=== PATIENT | male | born 1955 | race African-American/Black ===

== ENCOUNTER 2022-08-05 20:04 | Inpatient (IN) | payer MEDICARE, OTHER ==
[~2022-08-05] VITALS: Ht 182.9 cm; Wt 88.4 kg
[2022-08-05] MEDS: LACTATED RINGER'S 2,600 ML IV ONE (00:45)
[2022-08-05 21:26] LABS: Basophils # (auto) 0 10 ^3/uL (0-0.2); Basophils % (auto) 0.1 % (0.0-2.0); Eosinophils # (auto) 0 10 ^3/uL (0-0.8); Nucleated Red Blood Cells % 0.4 %
[2022-08-05 21:28] LABS: Hemoglobin 19.3 g/dL (13.5-17.5); Lymphocytes # (auto) 1.1 10 ^3/uL (0.4-5.4); Lymphocytes % (auto) 5.2 % (10.0-50.0); Mean Corpuscular Hgb Conc. 31.6 g/dL (32.0-36.0); Mean Corpuscular Volume 72.9 fL (80.0-100.0); Monocytes # (auto) 1.2 10 ^3/uL (0-1.3); Monocytes % (auto) 5.7 % (0.0-12.0); Neutrophils # (auto) 18.3 10 ^3/uL (1.6-8.6); Red Blood Cells 8.38 10^6/uL (4.5-5.90); Red Cell Distribution Width 17.8 % (11.8-14.3); White Blood Cell 20.6 10^3/uL (4.4-10.8)
[2022-08-05 23:37] LABS: Albumin 3.9 g/dL (3.4-5.0); BUN/Creatinine Ratio 10.8; Calcium 9.9 mg/dL (8.5-10.1); Magnesium 2.6 mg/dL (1.6-2.6); Potassium 4.5 mmol/L (3.5-5.1)
[2022-08-05 23:40] LABS: Total Protein 9.4 g/dL (6.4-8.2)
[2022-08-05] MEDS ORDERED: metroNIDAZOLE 500MG/100ML 100 ML IV ONE (23:45)
[2022-08-05] MEDS ORDERED: cefTRIAXone 1GM/50ML D5W 50 ML IV ONE (23:45)
[2022-08-06] MEDS: LACTATED RINGER'S 2,600 ML IV ONE (00:45)
[2022-08-06] MEDS ORDERED: PANTOPRAZOLE 40 MG/10 ML VIAL INJ IV ONE (01:15)
[2022-08-06] MEDS ORDERED: PANTOPRAZOLE 40mg/50ML NS AE 50 ML IV ONE (01:15)
[2022-08-06] MEDS ORDERED: HYDROcodone-ACET 5/325MG TAB PO PRN (04:00)
[2022-08-06] MEDS ORDERED: ACETAMINOPHEN 325 MG TAB PO PRN (04:00)
[2022-08-06] MEDS ORDERED: ONDANSETRON HCL 4 MG/2 ML VIAL IV PRN (04:00)
[2022-08-06] MEDS ORDERED: DOCUSATE SOD 100 MG CAP PO PRN (04:00)
[2022-08-06] MEDS ORDERED: LORazepam 2MG/ML-1ML VIAL IV ONE (04:30)
[2022-08-06] MEDS ORDERED: LORazepam 2MG/ML-1ML VIAL IV PRN (04:30)
[2022-08-06] MEDS ORDERED: NITROGLYCERIN 0.4 MG SL TAB SL PRN (04:45)
[2022-08-06] MEDS ORDERED: MORPHINE SULFATE INJ 2 MG/ml SYRG IV PRN (04:45)
[2022-08-06] MEDS ORDERED: SODIUM CHLORIDE 0.9% 1,000 ML IV SCH (06:00)
[2022-08-06] MEDS: metroNIDAZOLE 500MG/100ML 100 ML IV SCH ×3 (06:00→21:43)
[2022-08-06] MEDS: SODIUM CHLORIDE 0.9% 1,000 ML IV SCH ×2 (07:07→21:42)
[2022-08-06 07:19] LABS: Eosinophils # (auto) 0 10 ^3/uL (0-0.8); Lymphocytes % (auto) 6.7 % (10.0-50.0)
[2022-08-06 07:22] LABS: Basophils # (auto) 0 10 ^3/uL (0-0.2); Basophils % (auto) 0.3 % (0.0-2.0); Hematocrit 51.7 % (41.0-53.0); Mean Corpuscular Hemoglobin 23.2 pg (28.0-32.0); Mean Corpuscular Hgb Conc. 32.8 g/dL (32.0-36.0); Mean Corpuscular Volume 70.6 fL (80.0-100.0); Monocytes # (auto) 1.7 10 ^3/uL (0-1.3); Monocytes % (auto) 11.3 % (0.0-12.0); Neutrophils # (auto) 12.3 10 ^3/uL (1.6-8.6); Neutrophils % (auto) 81.7 % (37.0-80.0); Nucleated Red Blood Cells % 0.9 %; Red Blood Cells 7.32 10^6/uL (4.5-5.90); Red Cell Distribution Width 16.5 % (11.8-14.3); White Blood Cell 15.1 10^3/uL (4.4-10.8)
[2022-08-06 08:14] LABS: Potassium 4.9 mmol/L (3.5-5.1)
[2022-08-06 08:26] LABS: Albumin 3.4 g/dL (3.4-5.0); BUN/Creatinine Ratio 14.1; Bilirubin, Total 1.1 mg/dL (0.2-1.0); Calcium 9.2 mg/dL (8.5-10.1); Total Protein 7.1 g/dL (6.4-8.2)
[2022-08-06] MEDS: cefTRIAXone 1GM/50ML D5W 50 ML IV SCH (09:20)
[2022-08-06] MEDS: HEPARIN SODIUM (PORCINE) 5000 UNITS/ML 1ML VIAL SC SCH ×2 (10:08→21:48)
[2022-08-06] MEDS: FAMOTIDINE (10MG/ML) 2ML VL IV SCH (10:08)
[2022-08-06 10:45] LABS: Urine Bacteria NONE SEEN /hpf (None Seen); Urine Blood 1+ /uL (Negative); Urine Hyaline Cast MANY /lpf (0 - 2); Urine Mucus FEW (None Seen); Urine Specific Gravity 1.026 (1.001-1.035); Urine WBC 11 /hpf (0 - 3)
[2022-08-06] MEDS: LORazepam 2MG/ML-1ML VIAL IV PRN ×2 (10:54→20:19)
[2022-08-06 11:07] LABS: Magnesium 2.2 mg/dL (1.6-2.6); Uric Acid 10.4 mg/dL (3.5-7.2)
[2022-08-06 15:24] LABS: Alcohol, Urine < 3.0 mg/dL (0-10); Amphetamine Screen, Urine NEGATIVE (NEGATIVE); Barbiturate Scree,Urine NEGATIVE (NEGATIVE); Benzodiazephine Screen, Urine NEGATIVE (NEGATIVE); Cannabinoid Screen, Urine NEGATIVE (NEGATIVE); Cocaine Screen, Urine NEGATIVE (NEGATIVE); Opiate Scree,Urine NEGATIVE (NEGATIVE); Phencyclidine Screen, Urine NEGATIVE (NEGATIVE)
[2022-08-06 16:13] LABS: Protein, Urine 125.5 mg/dL (0.0-11.9)
[2022-08-06 16:56] VITALS: BP 120/66
[2022-08-06 17:00] VITALS: BP 120/66
[2022-08-06 22:00] VITALS: BP 97/60
[2022-08-07 05:00] VITALS: BP 110/64
[2022-08-07] MEDS: metroNIDAZOLE 500MG/100ML 100 ML IV SCH ×3 (05:21→21:59)
[2022-08-07 05:37] LABS: Albumin 2.8 g/dL (3.4-5.0); Anion Gap 5 (5-15); Aspartate Aminotransferase 17 U/L (15-37); BUN/Creatinine Ratio 29.9; Blood Urea Nitrogen 70 mg/dL (7-18); Calcium 8.3 mg/dL (8.5-10.1); Carbon Dioxide 26 mmol/L (21-32); Chloride 114 mmol/L (98-107); GFR African American 36 mL/min; GFR Non-African American 30 mL/min; Glucose 90 mg/dL (74-106); Potassium 4.4 mmol/L (3.5-5.1); Sodium 145 mmol/L (136-145)
[2022-08-07 05:46] LABS: Basophils # (auto) 0 10 ^3/uL (0-0.2); Basophils % (auto) 0.4 % (0.0-2.0); Eosinophils # (auto) 0 10 ^3/uL (0-0.8); Eosinophils % (auto) 0.5 % (0.0-7.0); Hematocrit 48.2 % (41.0-53.0); Hemoglobin 15.4 g/dL (13.5-17.5); Lymphocytes # (auto) 1.6 10 ^3/uL (0.4-5.4); Mean Corpuscular Hemoglobin 23.1 pg (28.0-32.0); Monocytes # (auto) 1.2 10 ^3/uL (0-1.3); Monocytes % (auto) 14.6 % (0.0-12.0); Neutrophils # (auto) 5.3 10 ^3/uL (1.6-8.6); Neutrophils % (auto) 64.5 % (37.0-80.0); Nucleated Red Blood Cells % 0.1 %; Red Blood Cells 6.69 10^6/uL (4.5-5.90); Red Cell Distribution Width 16.6 % (11.8-14.3); White Blood Cell 8.2 10^3/uL (4.4-10.8)
[2022-08-07 05:47] LABS: Alanine Aminotransferase 18 U/L (16-61); Alkaline Phosphatase 82 U/L (45-117); Bilirubin, Total 0.8 mg/dL (0.2-1.0); Total Protein 6.9 g/dL (6.4-8.2)
[2022-08-07] MEDS ORDERED: PIPERACILLIN-TAZOB 3.375GM 100 ML IV SCH (07:00)
[2022-08-07 08:38] VITALS: BP 156/77
[2022-08-07] MEDS ORDERED: ERGOCALCIFEROL 50,000 UNIT(1.25MG) CAP PO SCH (11:45)
[2022-08-07 13:00] VITALS: BP 102/58
[2022-08-07] MEDS: HEPARIN SODIUM (PORCINE) 5000 UNITS/ML 1ML VIAL SC SCH ×2 (15:36→22:03)
[2022-08-07] MEDS: cefTRIAXone 1GM/50ML D5W 50 ML IV SCH (15:36)
[2022-08-07] MEDS: SODIUM CHLORIDE 0.9% 1,000 ML IV SCH (15:37)
[2022-08-07 17:00] VITALS: BP 110/65
[2022-08-07 22:00] VITALS: BP 110/69
[2022-08-07] MEDS: LORazepam 2MG/ML-1ML VIAL IV PRN (22:14)
[2022-08-08 05:00] VITALS: BP 98/86
[2022-08-08] MEDS: SODIUM CHLORIDE 0.9% 1,000 ML IV SCH ×2 (05:40→22:39)
[2022-08-08] MEDS: metroNIDAZOLE 500MG/100ML 100 ML IV SCH ×3 (05:40→22:38)
[2022-08-08 06:37] LABS: Basophils # (auto) 0 10 ^3/uL (0-0.2); Basophils % (auto) 0.5 % (0.0-2.0); Eosinophils # (auto) 0.1 10 ^3/uL (0-0.8); Eosinophils % (auto) 0.8 % (0.0-7.0); Hematocrit 44.4 % (41.0-53.0); Lymphocytes # (auto) 1.4 10 ^3/uL (0.4-5.4); Lymphocytes % (auto) 17.5 % (10.0-50.0); Mean Corpuscular Hemoglobin 23.3 pg (28.0-32.0); Mean Corpuscular Hgb Conc. 31.5 g/dL (32.0-36.0); Mean Corpuscular Volume 73.8 fL (80.0-100.0); Monocytes # (auto) 0.9 10 ^3/uL (0-1.3); Monocytes % (auto) 11.1 % (0.0-12.0); Neutrophils # (auto) 5.5 10 ^3/uL (1.6-8.6); Neutrophils % (auto) 70.1 % (37.0-80.0); Nucleated Red Blood Cells % 0.1 %; Red Blood Cells 6.02 10^6/uL (4.5-5.90); Red Cell Distribution Width 16.9 % (11.8-14.3); White Blood Cell 7.8 10^3/uL (4.4-10.8)
[2022-08-08 06:49] LABS: Potassium 4.6 mmol/L (3.5-5.1)
[2022-08-08 06:54] LABS: BUN/Creatinine Ratio 27.4; Calcium 8.4 mg/dL (8.5-10.1)
[2022-08-08 08:40] VITALS: BP 121/59
[2022-08-08] MEDS: cefTRIAXone 1GM/50ML D5W 50 ML IV SCH (09:04)
[2022-08-08] MEDS: FAMOTIDINE (10MG/ML) 2ML VL IV SCH (09:04)
[2022-08-08] MEDS: HEPARIN SODIUM (PORCINE) 5000 UNITS/ML 1ML VIAL SC SCH ×2 (09:05→22:38)
[2022-08-08] MEDS: LORazepam 2MG/ML-1ML VIAL IV PRN ×3 (12:24→22:39)
[2022-08-08 13:00] VITALS: BP 117/63
[2022-08-08 17:00] VITALS: BP 124/73
[2022-08-08 22:00] VITALS: BP 104/66
[2022-08-09 05:00] VITALS: BP 99/58
[2022-08-09] MEDS: metroNIDAZOLE 500MG/100ML 100 ML IV SCH ×3 (06:13→22:00)
[2022-08-09 09:00] VITALS: BP 99/68
[2022-08-09] MEDS: cefTRIAXone 1GM/50ML D5W 50 ML IV SCH (09:30)
[2022-08-09] MEDS: HEPARIN SODIUM (PORCINE) 5000 UNITS/ML 1ML VIAL SC SCH ×2 (09:35→22:00)
[2022-08-09 13:00] VITALS: BP_SYST 111; BP_SYST 139; BP_DIAS 54; BP_DIAS 67
[2022-08-09] MEDS ORDERED: HALOPERIDOL LACTATE 5 MG/ML INJ VIAL IM PRN (13:15)
[2022-08-09] MEDS ORDERED: CHOLECALCIFEROL (VITD3) 2,000 UNIT CAP/TAB PO ONE (13:15)
[2022-08-09 17:00] VITALS: BP 133/69
[2022-08-09 21:53] VITALS: BP 112/54
[2022-08-09] MEDS: FAMOTIDINE (10MG/ML) 2ML VL IV SCH (22:00)
[2022-08-09] MEDS: OLANZapine 5 MG TAB PO SCH (22:00)
[2022-08-10 05:00] VITALS: BP 113/52
[2022-08-10] MEDS: metroNIDAZOLE 500MG/100ML 100 ML IV SCH ×2 (05:34→13:34)
[2022-08-10 09:00] VITALS: BP 118/65
[2022-08-10] MEDS: cefTRIAXone 1GM/50ML D5W 50 ML IV SCH (09:00)
[2022-08-10] MEDS: FAMOTIDINE (10MG/ML) 2ML VL IV SCH (09:54)
[2022-08-10] MEDS: HEPARIN SODIUM (PORCINE) 5000 UNITS/ML 1ML VIAL SC SCH (09:55)
[2022-08-10] MEDS: OLANZapine 5 MG TAB PO SCH (09:55)
[2022-08-10] MEDS ORDERED: CHOLECALCIFEROL (VITD3) 2,000 UNIT CAP/TAB PO SCH (10:00)
[2022-08-10 13:00] VITALS: BP 131/69
[2022-08-10] MEDS ORDERED: OLAN1TAB7 PO (15:47)
[2022-08-10] MEDS ORDERED: LEVO500T31 PO (15:47)
[2022-08-10] MEDS ORDERED: METR500T PO (15:47)
[2022-08-10] MEDS ORDERED: ERGO1CAP23 PO (15:47)
[2022-08-10 16:54] VITALS: BP 145/66
[2022-08-10 18:06] VITALS: BP 145/66
== END 2022-08-10 20:01 | disposition home health service (06) | DRG 871 ==
LOC: EDBD 20:04 → ER 20:04 → TELE 08-06 04:42 → TELE-WESTW 08-06 15:55
PROVIDERS: ADMIT Nurse Practitioner Family; ATTEND Internal Medicine
DX: A41.9 Sepsis, unspecified organism (principal); G93.41 Metabolic encephalopathy; I21.A1 Myocardial infarction type 2; N17.9 Acute kidney failure, unspecified; K92.2 Gastrointestinal hemorrhage, unspecified; D64.9 Anemia, unspecified; E86.0 Dehydration; N18.9 Chronic kidney disease, unspecified; F25.9 Schizoaffective disorder, unspecified; R68.0 Hypothermia, not associated with low environmental temperature; Z20.822 Contact with and (suspected) exposure to COVID-19; Z91.199 Patient's noncompliance with other medical treatment and regimen due to unspecified reason; Z80.3 Family history of malignant neoplasm of breast
CPT/HCPCS: 36415; 51702; 70450; 80048; 80053; 80307; 80320; 81001; 82140; 82150; 82306; 82570; 83690; 83735; 83935; 83970; 84156; 84300; 84439; 84443; 84484; 84550; 85025; 87040; 87077; 87086; 87186; 87426; 93005; 93306; 96365; 96366; 96367; 96375; 97163; 99291; C9113; G0378; J0696; J3490

== ENCOUNTER 2023-09-06 00:41 | Inpatient (IN) | payer MEDICARE ==
[~2023-09-06] VITALS: Ht 180.3 cm; Wt 89.2 kg
[~2023-09-06 00:41] MED LIST: ERGO1CAP23 PO; LEVO500T31 PO; METR500T PO; OLAN1TAB7 PO
[2023-09-06] MEDS: MIDAZOLAM HCL 2MG/2ML 2ml VIAL (1mg/ml) IV ONE ×2 (01:15→01:27)
[2023-09-06] MEDS: SODIUM CHLORIDE 0.9% 1,000 ML IV ONE ×2 (01:27)
[2023-09-06 01:45] LABS: Hemoglobin 16.9 g/dL (13.5-17.5); Mean Corpuscular Hemoglobin 23.3 pg (28.0-32.0); Mean Corpuscular Hgb Conc. 31.9 g/dL (32.0-36.0); Red Blood Cells 7.25 10^6/uL (4.5-5.90); Red Cell Distribution Width 17.5 % (11.8-14.3); White Blood Cell 28.2 10^3/uL (4.4-10.8)
[2023-09-06 01:46] LABS: Alanine Aminotransferase < 9 U/L (7-40); Albumin 4.9 g/dL (3.2-4.8); Alkaline Phosphatase 110 U/L (46-116); Anion Gap 14 (5-15); Aspartate Aminotransferase 19 U/L (13-40); BUN/Creatinine Ratio 9.5 (10.0-20.0); Bilirubin, Total 1.3 mg/dL (0.2-1.0); Blood Urea Nitrogen 28 mg/dL (9-23); Calcium 10.7 mg/dL (8.7-10.4); Carbon Dioxide 21 mmol/L (20-30); Chloride 106 mmol/L (98-107); Glucose 183 mg/dL (74-106); Potassium 4.3 mmol/L (3.5-5.1); Sodium 141 mmol/L (136-145); Total Protein 8.6 g/dL (5.7-8.2)
[2023-09-06 01:48] LABS: INR 1.17 (0.9-1.15); Prothrombin Time 12.2 sec (9.3-11.8)
[2023-09-06 01:49] LABS: Basophils % (manual) 0 (0.0-2.0); Blast Cells 0; Eosinophils % (manual) 0 (0-7); Metamyelocytes % 0; Myelocytes % 0; Promyelocytes % 0; Reactive Lymphocytes 0
[2023-09-06 02:11] VITALS: PULSE 134; RESP 27; O2SAT 96
[2023-09-06 02:34] LABS: Anisocytosis Slight; Band Neutrophils % (manual) 1; Hypochromia Moderate; Lymphocytes % (manual) 3 (10.0-50.0); Monocytes % (manual) 4 (0-12); Platelet Estimate Adequate; Target Cell FEW
[2023-09-06] MEDS ORDERED: MORPHINE SULFATE INJ 2 MG/ml SYRG IV PRN (05:45)
[2023-09-06] MEDS ORDERED: ONDANSETRON HCL 4 MG/2 ML VIAL IV PRN (05:45)
[2023-09-06] MEDS: SODIUM CHLORIDE 0.9% 1,000 ML IV SCH (06:25)
[2023-09-06 07:30] VITALS: PULSE 91; RESP 14; O2SAT 99
[2023-09-06] MEDS ORDERED: LORazepam 2MG/ML-1ML VIAL IV PRN (08:00)
[2023-09-06] MEDS: GASTROGRAFIN 120 ML SOL ONE (10:16)
[2023-09-06] MEDS: MIDAZOLAM HCL 2MG/2ML 2ml VIAL (1mg/ml) ONE (10:16)
[2023-09-06 12:24] LABS: Potassium 4.2 mmol/L (3.5-5.1)
[2023-09-06 12:25] LABS: Anion Gap 6 (5-15); Carbon Dioxide 27 mmol/L (20-30)
[2023-09-06 12:30] LABS: BUN/Creatinine Ratio 22.6 (10.0-20.0); Blood Urea Nitrogen 35 mg/dL (9-23); Chloride 118 mmol/L (98-107); Glucose 131 mg/dL (74-106); Sodium 151 mmol/L (136-145)
[2023-09-06] MEDS ORDERED: OLAN20TA PO (12:30)
[2023-09-06] MEDS: SOD CHL 0.45% 1,000 ML IV SCH (15:00)
[2023-09-06] MEDS: metroNIDAZOLE 500MG/100ML 100 ML IV SCH (15:22)
[2023-09-06] MEDS: cefTRIAXone 1GM/50ML D5W 50 ML IV SCH (17:42)
[2023-09-06] MEDS: LORazepam 2MG/ML-1ML VIAL IV SCH (19:42)
[2023-09-06 22:00] VITALS: BP 118/57; PULSE 104; RESP 18; TEMP 87.9; O2SAT 95
[2023-09-07] VITALS (8 sets, daily range): BP systolic 118–151; BP diastolic 65–84; PULSE 71–96; RESP 16–20; TEMP 97.5–98.1; O2SAT 93–98
[2023-09-07] MEDS ORDERED: LORazepam 2MG/ML-1ML VIAL IV SCH
[2023-09-07 07:43] LABS: Basophils # (auto) 0.1 10 ^3/uL (0-0.2); Eosinophils # (auto) 0.1 10 ^3/uL (0-0.8); Lymphocytes # (auto) 1.8 10 ^3/uL (0.4-5.4)
[2023-09-07 07:45] LABS: Basophils % (auto) 0.5 % (0.0-2.0); Eosinophils % (auto) 0.4 % (0.0-7.0); Hematocrit 43.9 % (41.0-53.0); Hemoglobin 13.8 g/dL (13.5-17.5); Lymphocytes % (auto) 11.9 % (10.0-50.0); Mean Corpuscular Hemoglobin 23.2 pg (28.0-32.0); Mean Corpuscular Hgb Conc. 31.5 g/dL (32.0-36.0); Mean Corpuscular Volume 73.8 fL (80.0-100.0); Monocytes # (auto) 0.9 10 ^3/uL (0-1.3); Monocytes % (auto) 6.3 % (0.0-12.0); Neutrophils # (auto) 12.1 10 ^3/uL (1.6-8.6); Neutrophils % (auto) 80.9 % (37.0-80.0); Nucleated Red Blood Cells % 0.1 %; Red Blood Cells 5.95 10^6/uL (4.5-5.90); Red Cell Distribution Width 17.8 % (11.8-14.3)
[2023-09-07 07:56] LABS: Alanine Aminotransferase 15 U/L (7-40); Alkaline Phosphatase 78 U/L (46-116); Anion Gap 6 (5-15); Aspartate Aminotransferase 30 U/L (13-40); BUN/Creatinine Ratio 23.8 (10.0-20.0); Carbon Dioxide 26 mmol/L (20-30); Chloride 119 mmol/L (98-107); Glucose 108 mg/dL (74-106); Sodium 151 mmol/L (136-145)
[2023-09-07 07:57] LABS: Bilirubin, Total 0.9 mg/dL (0.2-1.0); Total Protein 6.5 g/dL (5.7-8.2)
[2023-09-07 07:58] LABS: Blood Urea Nitrogen 24 mg/dL (9-23)
[2023-09-07] MEDS: OLANZapine 5 MG TAB PO SCH (10:14)
[2023-09-08] VITALS (7 sets, daily range): BP systolic 104–127; BP diastolic 53–73; PULSE 60–93; RESP 17–22; TEMP 36.6; O2SAT 95–98
[2023-09-08 05:59] LABS: Basophils # (auto) 0 10 ^3/uL (0-0.2); Basophils % (auto) 0.5 % (0.0-2.0); Eosinophils # (auto) 0.3 10 ^3/uL (0-0.8); Eosinophils % (auto) 3.3 % (0.0-7.0); Hematocrit 39.3 % (41.0-53.0); Hemoglobin 12.5 g/dL (13.5-17.5); Lymphocytes # (auto) 1.7 10 ^3/uL (0.4-5.4); Lymphocytes % (auto) 18.8 % (10.0-50.0); Mean Corpuscular Hemoglobin 23.4 pg (28.0-32.0); Mean Corpuscular Hgb Conc. 31.8 g/dL (32.0-36.0); Mean Corpuscular Volume 73.5 fL (80.0-100.0); Monocytes # (auto) 0.6 10 ^3/uL (0-1.3); Monocytes % (auto) 6.8 % (0.0-12.0); Neutrophils # (auto) 6.3 10 ^3/uL (1.6-8.6); Neutrophils % (auto) 70.6 % (37.0-80.0); Nucleated Red Blood Cells % 0.1 %; Red Blood Cells 5.35 10^6/uL (4.5-5.90); Red Cell Distribution Width 17.4 % (11.8-14.3)
[2023-09-08 06:04] LABS: Chloride 114 mmol/L (98-107); Potassium 3.6 mmol/L (3.5-5.1); Sodium 145 mmol/L (136-145)
[2023-09-08 06:05] LABS: Anion Gap 9 (5-15); Carbon Dioxide 22 mmol/L (20-30)
[2023-09-08 06:06] LABS: Calcium 8.6 mg/dL (8.5-10.1)
[2023-09-08 06:10] LABS: BUN/Creatinine Ratio 19.8 (10.0-20.0); Blood Urea Nitrogen 17 mg/dL (9-23); Glucose 90 mg/dL (74-106)
[2023-09-08 07:13] LABS: Urine Bacteria None Seen /hpf (None Seen)
[2023-09-08 07:29] LABS: Urine Blood Negative /uL (Negative); Urine Clarity Clear (Clear); Urine Color Light-Orange (Yellow); Urine Mucus FEW (None Seen); Urine Protein, UAD TRACE (Negative); Urine Specific Gravity 1.028 (1.001-1.035); Urine Urobilinogen Normal (Negative); Urine WBC 1 /hpf (0 - 3); Urine pH 6.5 (5.0-9.0)
== END 2023-09-08 19:45 | disposition home or self-care (01) | DRG 388 ==
LOC: ER 00:41 → CENTRAL 05:36 → OVERFLOW 05:36 → EAST 15:43 → CENTRAL 09-07 01:30
PROVIDERS: ADMIT Nurse Practitioner; ATTEND Nurse Practitioner Acute Care
PROC: 0D9670Z Drainage of Stomach with Drainage Device, Via Natural or Artificial Opening (ICD-10-PCS; principal; 2023-09-06)
DX: K56.699 Other intestinal obstruction unspecified as to partial versus complete obstruction (principal); N17.0 Acute kidney failure with tubular necrosis; R65.11 Systemic inflammatory response syndrome (SIRS) of non-infectious origin with acute organ dysfunction; E87.0 Hyperosmolality and hypernatremia; K92.0 Hematemesis; E86.0 Dehydration; F20.9 Schizophrenia, unspecified; Z80.3 Family history of malignant neoplasm of breast; Z79.899 Other long term (current) drug therapy
CPT/HCPCS: 36415; 71045; 74176; 74250; 80048; 80053; 81001; 82962; 84484; 85007; 85025; 85027; 85610; 86850; 86900; 86901; 93005; 99291; G0378; J2250; J3490

== ENCOUNTER 2024-10-15 00:02 | Inpatient (IN) | payer MEDICARE ==
[~2024-10-15] VITALS: Ht 180.3 cm; Wt 86.5 kg
[~2024-10-15 00:02] MED LIST changes: -ERGO1CAP23 PO; -LEVO500T31 PO; -METR500T PO; -OLAN1TAB7 PO; +OLAN20TA PO
[2024-10-15 00:43] LABS: Urine Bacteria None Seen /hpf (None Seen)
[2024-10-15 01:01] LABS: Eosinophils # (auto) 0 10 ^3/uL (0-0.8); Lymphocytes # (auto) 0.7 10 ^3/uL (0.4-5.4); Monocytes # (auto) 0.5 10 ^3/uL (0-1.3); Neutrophils % (auto) 94.4 % (37.0-80.0)
[2024-10-15 01:03] LABS: Urine Blood TRACE /uL (Negative); Urine Clarity Clear (Clear); Urine Color Yellow (Yellow); Urine Hyaline Cast FEW /lpf (0 - 2); Urine Mucus MODERATE (None Seen); Urine Protein, UAD 1+ (Negative); Urine Specific Gravity 1.033 (1.001-1.035); Urine Squamous Epithelial Cell FEW /hpf (<5); Urine Urobilinogen 4 mg/dL (Negative); Urine WBC 3 /HPF (0-3)
[2024-10-15 01:03] LABS: Basophils # (auto) 0 10 ^3/uL (0-0.2); Basophils % (auto) 0.1 % (0.0-2.0); Hematocrit 53.2 % (41.0-53.0); Hemoglobin 17.5 g/dL (13.5-17.5); Lymphocytes % (auto) 3.3 % (10.0-50.0); Mean Corpuscular Hemoglobin 23.6 pg (28.0-32.0); Mean Corpuscular Hgb Conc. 32.8 g/dL (32.0-36.0); Mean Corpuscular Volume 71.9 fL (80.0-100.0); Monocytes % (auto) 2.2 % (0.0-12.0); Neutrophils # (auto) 20.1 10 ^3/uL (1.6-8.6); Platelet Count (auto) 412 10^3/uL (140-450); Red Blood Cells 7.39 10^6/uL (4.5-5.90); Red Cell Distribution Width 17.8 % (11.8-14.3); White Blood Cell 21.3 10^3/uL (4.4-10.8)
--- NOTE | 2024-10-15 01:13 | DVH ---
Exam: CT CT AB PEL WO CON-NO ORAL OR IV History: abd pain Comparison Study: CT CT AB PEL WO CON-NO ORAL OR IV on DOS: 09/06/23 Technique: Multidetector spiral CT of the abdomen was performed from lung bases to pubic symphysis. I maging was performed without IV contrast. Axial, coronal and sagittal multiplanar reformats were obta ined from the axial data set by the technologist. Radiation Dose : 1. Abdomen/Pelvis: CTDIvol 16.92 mGy, DLP 967.3 mGy*cm. Findings: Evaluation of solid organs is limited due to lack of intravenous contrast use. Lung Bases: No acute or significant lung base finding. Normal heart size. No pleural or pericardial effusion. Liver: The liver is normal in size. No focal lesions. Gallbladder and Biliary Tree: Mildly distended gallbladder with subcentimeter gallstone Spleen: Unremarkable Pancreas: The pancreas is grossly normal in appearance. Adrenal Glands: Unremarkable Kidneys: Multiple nonobstructing bilateral renal stones measuring up to 5 mm. Surgical clips located posterior to the right kidney. Bladder: Decompressed Bowel: Small hiatal hernia. Fluid-filled distended loops of small bowel measuring up to 5.7 cm transi tion point is identified.. Normal appendix is visualized in the right lower quadrant without findings of appendicitis. Ascites: Absent Lymphadenopathy: No mesenteric, retroperitoneal or periportal lymphadenopathy. Abdominal Wall and Mesentery: Unremarkable. Vasculature: The visualized abdominal aorta is normal in size and caliber. Evaluation of abdominal a nd pelvic vessels is limited due to lack of intravenous contrast. Pelvic Organs: Unremarkable Musculoskeletal: No aggressive focal bony lesions, acute fractures or dislocation. Chronic deformity involving the pubic symphysis. Postsurgical changes of the left SI joint. IMPRESSION: Multiple fluid-filled distended loops of small bowel measuring up to 5.7 cm without a definitive ritchie sition point concerning for possible small bowel obstruction. Similar findings were observed on mult iple prior cTs dating back to August 06, 2022.Ancillary findings as described above. Cholelithiasis. Nephrolithiasis. END IMPRESSION:
--- NOTE | 2024-10-15 01:15 | ED.PDOC ---
History of Present Illness HPI Comments 69 y/o M, with a history of SBO's, presents with c/o nonradiating, 10/10 epigastric abdominal pain, with associated nausea and vomiting. Patient reports on unprovoked onset of symptoms, that have been ongoing since yesterday afternoon. He endorses on pain feeling similar to when he last had a SBO 6x months ago and needed an NG tube and hydration prior to resolving itself. then. States on not seeing a GI specialist since then, due to outpatient scheduling issues for followup. He denies any bloody or bilious vomitus, constipation, diarrhea, urinary symptoms, fever, chills, or further associated symptoms. Chief Complaint: GI Bleed Time Seen by MD: 00:20 Reviewed Notes: Nurses Notes, Medications, Allergies Allergies: Coded Allergies: NO KNOWN ALLERGIES (Unverified , 08/06/22) Home Meds Reported Medications Olanzapine (Zyprexa) 20 Mg Tab, 20 MG PO DAILY, TAB 09/06/23 Information Source: Patient Mode of Arrival: Ambulatory Severity: Moderate Timing: Hours Duration: Since onset Prehospital treatment: None Past Medical History PAST MEDICAL HISTORY: Schizophrenia Past Medical History (Other): SBO Surgical History: Denies all surgeries Family History Family History: Reviewed,noncontributory to illness Social History Smoker: Non-Smoker Alcohol: Denies ETOH Use Drugs: Denies Drug Use Lives In: Home All Other Systems: Reviewed and Negative (Comprehensive systems review obtained and negative except for what is stated in the HPI.) Physical Exam General Appearance: No Apparent Distress, Normal HEENT: Normal ENT Inspection, Pharynx Normal, TMs Normal Neck: Full Range of Motion, Non-Tender, Normal, Normal Inspection Respiratory: Chest Non-Tender, Lungs Clear, No Accessory Muscle Use, No Respiratory Distress, Normal Breath Sounds Cardiovascular: No Edema, No JVD, No Murmur, No Gallop, Normal Peripheral Pulses, Regular Rate/Rhythm Breast Exam: Deferred Gastrointestinal: Diffuse (tenderness ), No Organomegaly, No Pulsatile Mass, Normal Bowel Sounds, Soft, Tenderness (diffused ) Genitalia: Deferred Pelvic: Deferred Rectal: Deferred Extremities: No calf tenderness, Normal capillary refill, Normal inspection, Normal range of motion, Non-tender, No pedal edema Musculoskeletal : Apperance: Normal Neurologic: Alert, practice assistant II-XII nml as Tested, No Motor Deficits, Normal Affect, Normal Mood, No Sensory Deficits Cerebellar Function: Normal Reflexes: Normal Skin: Dry, Normal Color, Warm Lymphatic: No Adenopathy Was a procedure done? Was a procedure done?: No Differential Dx Considerations may include: SBO, gastritis, gastroenteritis, PUD, GERD, among others X-Ray, Labs, Meds, VS Vital Signs Date Time Temp Pulse Resp B/P (MAP) Pulse Ox O2 Delivery O2 Flow Rate FiO2 10/15/24 00:10 97.5 72 16 172/91 (118) 97 97.5 Lab Test 10/15/24 00:51 10/15/24 00:43 Range/Units White Blood Count 21.3 H 4.4-10.8 10^3/uL Red Blood Count 7.39 H 4.5-5.90 10^6/uL Hemoglobin 17.5 13.5-17.5 g/dL Hematocrit 53.2 H 41.0-53.0 % Mean Corpuscular Volume 71.9 L 80.0-100.0 fL Mean Corpuscular Hemoglobin 23.6 L 28.0-32.0 pg Mean Corpuscular Hemoglobin Concent 32.8 32.0-36.0 g/dL Red Cell Distribution Width 17.8 H 11.8-14.3 % Platelet Count 412 140-450 10^3/uL Mean Platelet Volume 7.8 6.9-10.8 fL Neutrophils (%) (Auto) 94.4 H 37.0-80.0 % Lymphocytes (%) (Auto) 3.3 L 10.0-50.0 % Monocytes (%) (Auto) 2.2 0.0-12.0 % Eosinophils (%) (Auto) 0.0 0.0-7.0 % Basophils (%) (Auto) 0.1 0.0-2.0 % Neutrophils # (Auto) 20.1 H 1.6-8.6 10 ^3/uL Lymphocytes # (Auto) 0.7 0.4-5.4 10 ^3/uL Monocytes # (Auto) 0.5 0-1.3 10 ^3/uL Eosinophils # (Auto) 0 0-0.8 10 ^3/uL Basophils # (Auto) 0 0-0.2 10 ^3/uL Nucleated Red Blood Cells 0.0 % Sodium Level 141 136-145 mmol/L Potassium Level 3.7 3.5-5.1 mmol/L Chloride Level 105 98-107 mmol/L Carbon Dioxide Level 23 20-31 mmol/L Anion Gap 13 5-15 Blood Urea Nitrogen 11 9-23 mg/dL Creatinine 1.32 H 0.700-1.30 mg/dL Glomerular Filtration Rate Calc 59 >90 mL/min BUN/Creatinine Ratio 8.3 L 10.0-20.0 Serum Glucose 189 H 74-106 mg/dL Calcium Level 10.3 8.7-10.4 mg/dL Total Bilirubin 0.7 0.2-1.0 mg/dL Aspartate Amino Transferase (AST) 12 L 13-40 U/L Alanine Aminotransferase (ALT) < 9 7-40 U/L Alkaline Phosphatase 120 H 46-116 U/L Total Protein 8.7 H 5.7-8.2 g/dL Albumin 5.2 H 3.2-4.8 g/dL Lipase 32 12-53 U/L Urine Color Yellow Yellow Urine Clarity Clear Clear Urine pH 6.0 5.0-9.0 Urine Specific [place] 1.033 1.001-1.035 Urine Protein 1+ H Negative Urine Ketones 2+ H Negative Urine Blood Trace H Negative /uL Urine Nitrite Negative Negative Urine Bilirubin Negative Negative Urine Urobilinogen 4 H Negative mg/dL Urine Leukocyte Esterase Negative Negative /uL Urine RBC 15 0 - 3 /hpf Urine Microscopic WBC 3 0-3 /HPF Urine Squamous Epithelial Cells Few <5 /hpf Urine Bacteria None seen None Seen /hpf Urine Hyaline Casts Few 0 - 2 /lpf Urine Mucus Moderate None Seen Urine Glucose Normal Normal mg/dL X-Ray, Labs, Meds, VS Comment CT abdomen IMPRESSION: Multiple fluid-filled distended loops of small bowel measuring up to 5.7 cm without a definitive transition point concerning for possible small bowel obstruction. Similar findings were observed on multiple prior cTs dating back to August 06, 2022.Ancillary findings as described above. Cholelithiasis. Nephrolithiasis. END IMPRESSION: Patient will be admitted for small-bowel obstruction Order for NG tube with continuous low suction placed Recommend surgical consult in the morning Pending lactic acid Time of 1ST Reevaluation: 00:50 Reevaluation 1ST: Unchanged Patient Education/Counseling: Diagnosis, Treatment Family Education/Counseling: Diagnosis, Treatment Departure 1 Departure Time of Disposition: 01:50 Impression: Primary Impression: Small bowel obstruction Additional Impression: Dehydration Disposition: 09 ADMITTED INPATIENT Condition: Stable Critical Care Note Critical Care Time?: No Stability Stability form required: No Heart Score Heart Score: Heart Score Response (Comments) Value History N/A 0 EKG N/A 0 Age N/A 0 Risk Factors N/A 0 Troponin N/A 0 Total 0 I personally scribed for ANGELES MURPHY ([email or web address]) on 10/15/24 at 01:15. Electronically submitted by Alexis Pierre ([email or web address]). ANGELES MURPHY October 15, 2024 01:15
[2024-10-15 01:19] LABS: Anion Gap 13 (5-15); BUN/Creatinine Ratio 8.3 (10.0-20.0); Bilirubin, Total 0.7 mg/dL (0.2-1.0); Blood Urea Nitrogen 11 mg/dL (9-23); Calcium 10.3 mg/dL (8.7-10.4); Carbon Dioxide 23 mmol/L (20-31); Chloride 105 mmol/L (98-107); Lipase 32 U/L (12-53); Potassium 3.7 mmol/L (3.5-5.1); Sodium 141 mmol/L (136-145)
[2024-10-15 01:28] LABS: Alanine Aminotransferase < 9 U/L (7-40); Albumin 5.2 g/dL (3.2-4.8); Alkaline Phosphatase 120 U/L (46-116); Aspartate Aminotransferase 12 U/L (13-40); Glucose 189 mg/dL (74-106); Total Protein 8.7 g/dL (5.7-8.2)
[2024-10-15 01:59] VITALS: PULSE 70; RESP 18; O2SAT 96
[2024-10-15 02:15] VITALS: PULSE 58; RESP 26; O2SAT 95
[2024-10-15 03:46] LABS: Lactic Acid w/Reflex 2.4 mmol/L (0.4-2.0)
[2024-10-15] MEDS: SODIUM CHLORIDE 0.9% 1,000 ML IV ONE ×3 (03:46→09:10)
[2024-10-15] MEDS: MIDAZOLAM HCL 2MG/2ML 2ml VIAL (1mg/ml) IV ONE (03:47)
[2024-10-15] MEDS: ONDANSETRON HCL 4 MG/2 ML VIAL IV ONE (03:48)
[2024-10-15] MEDS: MORPHINE SULFATE 4 MG/ML SYR/VIAL IV ONE (03:48)
[2024-10-15] MEDS ORDERED: ONDANSETRON HCL 4 MG/2 ML VIAL IV PRN (04:15)
[2024-10-15] MEDS ORDERED: MORPHINE SULFATE INJ 2 MG/ml SYRG IV PRN (04:15)
[2024-10-15] MEDS: cefTRIAXone 1GM/50ML D5W 50 ML IV SCH (04:47)
--- NOTE | 2024-10-15 04:57 | DVHHP2 ---
History of Present Illness Reason for Visit: Abdominal pain History of Present Illness 69-year-old male presents for evaluation of abdominal pain. Patient endorses a two day history of diffuse abdominal pain with associated nausea and vomiting. Patient denies fever or chills. No cardiac or respiratory complaints. Past Medical History Schizophrenia, small-bowel obstruction Past Surgical History Denies Family History Noncontributory Smoke: No ALCOHOL: none Drugs: None Lives: with Family Review of Systems Review of Systems Review of systems are currently negative otherwise addressed in HPI. Allergies: Coded Allergies: NO KNOWN ALLERGIES (Unverified , 08/06/22) Medications Current Medications Medications Dose Ordered Sig/Sadie Route Start Time Stop Time Status Last Admin Dose Admin Ceftriaxone Sodium 50 ml @ 100 mls/hr DAILY@09 IV 10/15/24 04:15 10/15/24 04:47 100 MLS/HR Metronidazole 100 ml @ 100 mls/hr Q8HR IV 10/15/24 06:00 Ondansetron HCl 4 mg Q4HP PRN IV 10/15/24 04:15 Morphine Sulfate 2 mg Q4HPRN PRN IV 10/15/24 04:15 Exam Vital Signs Vital Signs Date Time Temp Pulse Resp B/P (MAP) Pulse Ox O2 Delivery O2 Flow Rate FiO2 10/15/24 03:48 65 25 153/88 10/15/24 01:59 96 Room Air* 0 21 10/15/24 01:51 98.3 98.3 Exam Gen: 69-year-old male in mild distress Skin: Warm, dry, normal color and texture, no rash. HEENT: Normocephalic atraumatic, mucous membranes moist and pink. Neck: Cervical and supraclavicular nodes normal without enlargement, trachea is midline, thyroid gland is normal without masses. Pulmonary: Clear to auscultation and percussion bilaterally. Cardiac: Regular rate and rhythm. No murmur Abdomen: Soft, diffuse tenderness, nondistended, bowel sounds present all 4 quadrants, no guarding, no rigidity, no organomegaly. Extremities: No cyanosis, clubbing, no edema Neuro: Cranial nerves II through XII grossly intact, normal affect and speech, no focal motor deficits. Labs/Xrays ORDERING PHYSICIAN: ANGELES MURPHY PROCEDURE(s): ABPL - CT AB PEL WO CON-NO ORAL OR IV REASON: abd pain ORDER NUMBER(s): [id number], ACCESSION NUMBER(s): [id number] Exam: CT CT AB PEL WO CON-NO ORAL OR IV History: abd pain Comparison Study: CT CT AB PEL WO CON-NO ORAL OR IV on DOS: 09/06/23 Technique: Multidetector spiral CT of the abdomen was performed from lung bases to pubic symphysis. Imaging was performed without IV contrast. Axial, coronal and sagittal multiplanar reformats were obtained from the axial data set by the technologist. Radiation Dose : 1. Abdomen/Pelvis: CTDIvol 16.92 mGy, DLP 967.3 mGy*cm. Findings: Evaluation of solid organs is limited due to lack of intravenous contrast use. Lung Bases: No acute or significant lung base finding. Normal heart size. No pleural or pericardial effusion. Liver: The liver is normal in size. No focal lesions. Gallbladder and Biliary Tree: Mildly distended gallbladder with subcentimeter gallstone Spleen: Unremarkable Pancreas: The pancreas is grossly normal in appearance. Adrenal Glands: Unremarkable Kidneys: Multiple nonobstructing bilateral renal stones measuring up to 5 mm. Surgical clips located posterior to the right kidney. Bladder: Decompressed Bowel: Small hiatal hernia. Fluid-filled distended loops of small bowel measuring up to 5.7 cm transition point is identified.. Normal appendix is visualized in the right lower quadrant without findings of appendicitis. Ascites: Absent Lymphadenopathy: No mesenteric, retroperitoneal or periportal lymphadenopathy. Abdominal Wall and Mesentery: Unremarkable. Vasculature: The visualized abdominal aorta is normal in size and caliber. Evaluation of abdominal and pelvic vessels is limited due to lack of intravenous contrast. Pelvic Organs: Unremarkable Musculoskeletal: No aggressive focal bony lesions, acute fractures or dislocation. Chronic deformity involving the pubic symphysis. Postsurgical changes of the left SI joint. IMPRESSION: Multiple fluid-filled distended loops of small bowel measuring up to 5.7 cm without a definitive transition point concerning for possible small bowel obstruction. Similar findings were observed on multiple prior cTs dating back to August 06, 2022.Ancillary findings as described above. Cholelithiasis. Nephrolithiasis. END IMPRESSION: Labs Test 10/15/24 04:02 10/15/24 00:51 10/15/24 00:43 Range/Units Lactic Acid Level 3.1 *H 0.4-2.0 mmol/L White Blood Count 21.3 H 4.4-10.8 10^3/uL Red Blood Count 7.39 H 4.5-5.90 10^6/uL Hemoglobin 17.5 13.5-17.5 g/dL Hematocrit 53.2 H 41.0-53.0 % Mean Corpuscular Volume 71.9 L 80.0-100.0 fL Mean Corpuscular Hemoglobin 23.6 L 28.0-32.0 pg Mean Corpuscular Hemoglobin Concent 32.8 32.0-36.0 g/dL Red Cell Distribution Width 17.8 H 11.8-14.3 % Platelet Count 412 140-450 10^3/uL Mean Platelet Volume 7.8 6.9-10.8 fL Neutrophils (%) (Auto) 94.4 H 37.0-80.0 % Lymphocytes (%) (Auto) 3.3 L 10.0-50.0 % Monocytes (%) (Auto) 2.2 0.0-12.0 % Eosinophils (%) (Auto) 0.0 0.0-7.0 % Basophils (%) (Auto) 0.1 0.0-2.0 % Neutrophils # (Auto) 20.1 H 1.6-8.6 10 ^3/uL Lymphocytes # (Auto) 0.7 0.4-5.4 10 ^3/uL Monocytes # (Auto) 0.5 0-1.3 10 ^3/uL Eosinophils # (Auto) 0 0-0.8 10 ^3/uL Basophils # (Auto) 0 0-0.2 10 ^3/uL Nucleated Red Blood Cells 0.0 % Sodium Level 141 136-145 mmol/L Potassium Level 3.7 3.5-5.1 mmol/L Chloride Level 105 98-107 mmol/L Carbon Dioxide Level 23 20-31 mmol/L Anion Gap 13 5-15 Blood Urea Nitrogen 11 9-23 mg/dL Creatinine 1.32 H 0.700-1.30 mg/dL Glomerular Filtration Rate Calc 59 >90 mL/min BUN/Creatinine Ratio 8.3 L 10.0-20.0 Serum Glucose 189 H 74-106 mg/dL Calcium Level 10.3 8.7-10.4 mg/dL Total Bilirubin 0.7 0.2-1.0 mg/dL Aspartate Amino Transferase (AST) 12 L 13-40 U/L Alanine Aminotransferase (ALT) < 9 7-40 U/L Alkaline Phosphatase 120 H 46-116 U/L Total Protein 8.7 H 5.7-8.2 g/dL Albumin 5.2 H 3.2-4.8 g/dL Lipase 32 12-53 U/L Urine Color Yellow Yellow Urine Clarity Clear Clear Urine pH 6.0 5.0-9.0 Urine Specific [place] 1.033 1.001-1.035 Urine Protein 1+ H Negative Urine Ketones 2+ H Negative Urine Blood Trace H Negative /uL Urine Nitrite Negative Negative Urine Bilirubin Negative Negative Urine Urobilinogen 4 H Negative mg/dL Urine Leukocyte Esterase Negative Negative /uL Urine RBC 15 0 - 3 /hpf Urine Microscopic WBC 3 0-3 /HPF Urine Squamous Epithelial Cells Few <5 /hpf Urine Bacteria None seen None Seen /hpf Urine Hyaline Casts Few 0 - 2 /lpf Urine Mucus Moderate None Seen Urine Glucose Normal Normal mg/dL Assessment/Plan Assessment/Plan Assessment Small-bowel obstruction Acute kidney injury Leukocytosis Plan Admit the patient to [facility] to the hospitalist NPO Pain management Surgical consult Small-bowel follow-through pending Rocephin/Flagyl Maintenance IV fluids Continue treatment per orders.9 Plan discussed with: Patient My Orders Orders - JESICA BARBER AGACNP Procedure Category Date Status Time Sodium Chloride 0.9% PHA 10/15/24 In Process 04:15 Ceftriaxone 1gm/50ml PHA 10/15/24 In Process D5w (Rocephin) 04:15 Metronidazole PHA 10/15/24 In Process 500mg/100ml (Flagyl 06:00 * Surgical Consult CONS 10/15/24 Transmitted Small Bowel Series-W XY 10/15/24 Logged Gastrogra 04:04 Blood Culture DESTIN 10/15/24 Logged 04:04 Admit ADMIT 10/15/24 Transmitted 04:04 Ondansetron Hcl PHA 10/15/24 In Process (Zofran) 04:15 Complete Blood Count LAB 10/16/24 Verified 04:00 Comprehensive LAB 10/16/24 Verified Metabolic Panel 04:00 Npo (Nothing By DIET 10/15/24 Transmitted Mouth) Diet Breakfast Condition: Stable DARIUS 10/15/24 In Process 04:04 Bedrest With Bathroom DARIUS 10/15/24 In Process Privileg 04:04 Morphine Sulfate PHA 10/15/24 In Process Injection 04:15 PTPTT LAB 10/15/24 Logged 04:04 Stool Occult Blood LAB 10/15/24 Verified 04:53 Stool Bacterial DESTIN 10/15/24 Verified Culture 04:53 Gastric Occult Blood LAB 10/15/24 Verified 04:53 Pantoprazole PHA 10/15/24 Verified (Protonix) 10:00 Date of Service: October 15, 2024 Billing Provider: JESICA BARBER Common Visit Codes: [id number] INP/OBS CARE (HIGH) JESICA BARBER October 15, 2024 04:57
[2024-10-15] MEDS: metroNIDAZOLE 500MG/100ML 100 ML IV SCH (06:35)
[2024-10-15 07:14] LABS: INR 1.09 (0.9-1.15); Partial Thromboplastin Time 27.3 SEC (24.5-34.5); Prothrombin Time 11.5 sec (9.3-11.8)
[2024-10-15 08:00] VITALS: PULSE 15; PULSE 58; RESP 15; RESP 26; O2SAT 95; O2SAT 96
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
[2024-10-15 09:22] LABS: Albumin 4.7 g/dL (3.2-4.8); Alkaline Phosphatase 110 U/L (46-116); Anion Gap 12 (5-15); Aspartate Aminotransferase 14 U/L (13-40); BUN/Creatinine Ratio 9.8 (10.0-20.0); Blood Urea Nitrogen 12 mg/dL (9-23); Calcium 10.2 mg/dL (8.7-10.4); Carbon Dioxide 24 mmol/L (20-31); Sodium 143 mmol/L (136-145); Total Protein 7.8 g/dL (5.7-8.2)
[2024-10-15 09:23] LABS: Bilirubin, Total 0.7 mg/dL (0.2-1.0)
[2024-10-15] MEDS: GASTROGRAFIN 120 ML SOL ONE (09:23)
[2024-10-15 09:26] LABS: Alanine Aminotransferase < 9 U/L (7-40); Chloride 107 mmol/L (98-107); Glucose 122 mg/dL (74-106)
[2024-10-15] MEDS: PANTOPRAZOLE 40 MG/10 ML VIAL INJ IV SCH (10:00)
[2024-10-15 11:00] LABS: Amphetamine Screen, Urine Neg (NEGATIVE); Barbiturate Scree,Urine Neg (NEGATIVE); Benzodiazephine Screen, Urine Neg (NEGATIVE); Cannabinoid Screen, Urine Neg (NEGATIVE); Cocaine Screen, Urine Neg (NEGATIVE); Opiate Scree,Urine Neg (NEGATIVE); Phencyclidine Screen, Urine Neg (NEGATIVE)
--- NOTE | 2024-10-15 11:17 | DVH ---
Procedure: XY SMALL BOWEL SERIES-W GASTROGRA Reason for study/Clinical History: SBO Comparison Study: XY SMALL BOWEL SERIES-W GASTROGRA on DOS: 09/06/23 Technique: Single contrast small bowel series performed. FINDINGS/IMPRESSION: Initial plant guide view of the abdomen and pelvis appears demonstrates no acute process. Contrast is identified within the colon by 1 hour. This represents a normal small bowel transit time .
[2024-10-15 12:20] LABS: Hepatitis B Surface Antigen Negative (Negative)
[2024-10-15 12:36] LABS: Hepatitis C Antibody Negative (Negative)
--- NOTE | 2024-10-15 12:55 | DVHINCON2 ---
Date of service: October 15, 2024 History of Present Illness 69-year-old male with a previous history of small-bowel obstruction treated successfully with conservative treatment now complaining of one day history of diffuse abdominal pain associated with nausea and vomiting. However today patient already had a bowel movement and feels much better today. Past Medical History Schizophrenia. History of small-bowel obstruction. Past Surgical History No recent abdominal surgeries Family History: FH: breast cancer G8 MOTHER Family History Noncontributory Allergies: Coded Allergies: NO KNOWN ALLERGIES (Unverified , 08/06/22) Home Meds No Active Prescriptions or Reported Meds Current Medications Current Medications Medications (Trade) Dose Ordered Sig/Sadie Route PRN Reason Start Time Stop Time Status Last Admin Ceftriaxone Sodium 50 ml @ 100 mls/hr DAILY@09 IV 10/15/24 04:15 10/15/24 09:21 Metronidazole 100 ml @ 100 mls/hr Q8HR IV 10/15/24 06:00 10/15/24 06:35 Ondansetron HCl (Zofran) 4 mg Q4HP PRN IV NAUSEA / VOMITING 10/15/24 04:15 Morphine Sulfate 2 mg Q4HPRN PRN IV SEVERE PAIN (7-10 PAIN SCALE) 10/15/24 04:15 Pantoprazole Sodium (Protonix) 40 mg DAILY IV 10/15/24 10:00 10/15/24 10:00 Vital Signs Vital Signs Date Time Temp Pulse Resp B/P (MAP) Pulse Ox O2 Delivery O2 Flow Rate FiO2 10/15/24 09:05 68 22 151/67 (95) 10/15/24 08:00 96 Room Air* 0 21 10/15/24 07:36 98.4 98.4 Physical Exam GEN: Age-appropriate male in no acute distress. Alert. HEENT: Normocephalic atraumatic. Moist mucous membranes. Anicteric sclerae. CV: RRR Respiratory: CTAB ABD: Minimal distention but soft. Very minimal diffuse tenderness to palpation without guarding or rebound. CT of the abdomen and pelvis: Multiple fluid-filled distended loops of small bowel measuring up to 5.7 cm without definitive transition point concerning for possible small bowel obstruction. Small-bowel follow-through: Contrast in the colon by 1 hour. Labs/Diagnostic Data Labs Test 10/15/24 06:29 10/15/24 04:02 10/15/24 00:51 10/15/24 00:43 Range/Units Prothrombin Time 11.5 9.3-11.8 sec Prothrombin Time INR 1.09 0.9-1.15 Activated Partial Thromboplast Time 27.3 24.5-34.5 SEC Sodium Level 143 136-145 mmol/L Potassium Level 4.0 3.5-5.1 mmol/L Chloride Level 107 98-107 mmol/L Carbon Dioxide Level 24 20-31 mmol/L Anion Gap 12 5-15 Blood Urea Nitrogen 12 9-23 mg/dL Creatinine 1.22 0.700-1.30 mg/dL Glomerular Filtration Rate Calc 65 >90 mL/min BUN/Creatinine Ratio 9.8 L 10.0-20.0 Serum Glucose 122 H 74-106 mg/dL Calcium Level 10.2 8.7-10.4 mg/dL Total Bilirubin 0.7 0.2-1.0 mg/dL Aspartate Amino Transferase (AST) 14 13-40 U/L Alanine Aminotransferase (ALT) < 9 7-40 U/L Alkaline Phosphatase 110 46-116 U/L Total Protein 7.8 5.7-8.2 g/dL Albumin 4.7 3.2-4.8 g/dL Hepatitis B Surface Antigen Negative Negative Hepatitis C Antibody Negative Negative Lactic Acid Level 3.1 *H 0.4-2.0 mmol/L White Blood Count 21.3 H 4.4-10.8 10^3/uL Red Blood Count 7.39 H 4.5-5.90 10^6/uL Hemoglobin 17.5 13.5-17.5 g/dL Hematocrit 53.2 H 41.0-53.0 % Mean Corpuscular Volume 71.9 L 80.0-100.0 fL Mean Corpuscular Hemoglobin 23.6 L 28.0-32.0 pg Mean Corpuscular Hemoglobin Concent 32.8 32.0-36.0 g/dL Red Cell Distribution Width 17.8 H 11.8-14.3 % Platelet Count 412 140-450 10^3/uL Mean Platelet Volume 7.8 6.9-10.8 fL Neutrophils (%) (Auto) 94.4 H 37.0-80.0 % Lymphocytes (%) (Auto) 3.3 L 10.0-50.0 % Monocytes (%) (Auto) 2.2 0.0-12.0 % Eosinophils (%) (Auto) 0.0 0.0-7.0 % Basophils (%) (Auto) 0.1 0.0-2.0 % Neutrophils # (Auto) 20.1 H 1.6-8.6 10 ^3/uL Lymphocytes # (Auto) 0.7 0.4-5.4 10 ^3/uL Monocytes # (Auto) 0.5 0-1.3 10 ^3/uL Eosinophils # (Auto) 0 0-0.8 10 ^3/uL Basophils # (Auto) 0 0-0.2 10 ^3/uL Nucleated Red Blood Cells 0.0 % Hemoglobin A1c 5.2 <5.7 % A1C Lipase 32 12-53 U/L Urine Color Yellow Yellow Urine Clarity Clear Clear Urine pH 6.0 5.0-9.0 Urine Specific [place] 1.033 1.001-1.035 Urine Protein 1+ H Negative Urine Ketones 2+ H Negative Urine Blood Trace H Negative /uL Urine Nitrite Negative Negative Urine Bilirubin Negative Negative Urine Urobilinogen 4 H Negative mg/dL Urine Leukocyte Esterase Negative Negative /uL Urine RBC 15 0 - 3 /hpf Urine Microscopic WBC 3 0-3 /HPF Urine Squamous Epithelial Cells Few <5 /hpf Urine Bacteria None seen None Seen /hpf Urine Hyaline Casts Few 0 - 2 /lpf Urine Mucus Moderate None Seen Urine Glucose Normal Normal mg/dL Urine Opiates Screen Neg NEGATIVE Urine Fentanyl Screen Neg NEGATIVE Urine Barbiturates Screen Neg NEGATIVE Urine Phencyclidine Screen Neg NEGATIVE Urine Amphetamines Screen Neg NEGATIVE Urine Benzodiazepines Screen Neg NEGATIVE Urine Cocaine Screen Neg NEGATIVE Urine Cannabinoids Screen Neg NEGATIVE Assessment 1. Resolving partial small bowel obstruction Plan/Recommendation 1. Clear liquid diet. If tolerating possible discharge home. Plan discussed with: Patient ELENA URBINA MD October 15, 2024 12:55
[2024-10-15 14:35] VITALS: BP 161/84; PULSE 72; RESP 20; TEMP 98; O2SAT 95
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
[2024-10-15 18:00] VITALS: BP 159/84; PULSE 77; RESP 18; TEMP 98.5; O2SAT 95
[2024-10-15 20:48] VITALS: BP 166/84; PULSE 71; RESP 14; TEMP 97.8; O2SAT 93
[2024-10-16 01:00] VITALS: BP 122/75; PULSE 86; RESP 14; TEMP 98; O2SAT 98
[2024-10-16 05:00] VITALS: BP 147/72; PULSE 60; RESP 16; TEMP 97.9; O2SAT 96
[2024-10-16 06:58] LABS: Basophils # (auto) 0.1 10 ^3/uL (0-0.2); Basophils % (auto) 0.6 % (0.0-2.0); Eosinophils # (auto) 0.1 10 ^3/uL (0-0.8); Eosinophils % (auto) 0.9 % (0.0-7.0); Hematocrit 45.3 % (41.0-53.0); Hemoglobin 14.6 g/dL (13.5-17.5); Lymphocytes # (auto) 1.5 10 ^3/uL (0.4-5.4); Lymphocytes % (auto) 16.9 % (10.0-50.0); Mean Corpuscular Hemoglobin 23.2 pg (28.0-32.0); Mean Corpuscular Hgb Conc. 32.2 g/dL (32.0-36.0); Mean Corpuscular Volume 72.1 fL (80.0-100.0); Monocytes # (auto) 0.7 10 ^3/uL (0-1.3); Monocytes % (auto) 7.7 % (0.0-12.0); Neutrophils # (auto) 6.8 10 ^3/uL (1.6-8.6); Neutrophils % (auto) 73.9 % (37.0-80.0); Nucleated Red Blood Cells % 0.1 %; Platelet Count (auto) 293 10^3/uL (140-450); Red Blood Cells 6.28 10^6/uL (4.5-5.90); Red Cell Distribution Width 17.6 % (11.8-14.3); White Blood Cell 9.1 10^3/uL (4.4-10.8)
[2024-10-16 07:07] LABS: Albumin 4.1 g/dL (3.2-4.8); Alkaline Phosphatase 88 U/L (46-116); Anion Gap 8 (5-15); Aspartate Aminotransferase 16 U/L (13-40); BUN/Creatinine Ratio 16.8 (10.0-20.0); Blood Urea Nitrogen 17 mg/dL (9-23); Carbon Dioxide 27 mmol/L (20-31); Glucose 93 mg/dL (74-106); Potassium 3.9 mmol/L (3.5-5.1); Total Protein 6.7 g/dL (5.7-8.2)
[2024-10-16 07:08] LABS: Bilirubin, Total 0.8 mg/dL (0.2-1.0)
[2024-10-16 07:09] LABS: Chloride 113 mmol/L (98-107); Sodium 148 mmol/L (136-145)
[2024-10-16 07:10] LABS: Alanine Aminotransferase < 9 U/L (7-40)
[2024-10-16 09:00] VITALS: BP 125/67; PULSE 63; RESP 16; TEMP 98.2; O2SAT 97
--- NOTE | 2024-10-16 10:21 | DVHPN2 ---
Progress Note - Dictate Date Seen: October 16, 2024 Has the PT tested + for MRSA If YES, has PT been informed?: No Medical Necessity Reason Pt with a Central, PICC or Fol: No Subjective E: no major events o/n. orlin po. +BM vital signs Vital Sign Date Time Temp Pulse Resp B/P (MAP) Pulse Ox O2 Delivery O2 Flow Rate FiO2 10/16/24 09:00 98.2 63 16 125/67 (86) 97 98.2 10/16/24 08:19 Room Air* 0 21 Total Intake and Output 10/15/24 10/15/24 10/16/24 14:59 22:59 06:59 Intake Total 300 ml 600 ml 280 ml Balance 300 ml 600 ml 280 ml medications Current Medications Medications Dose Ordered Sig/Sadie Route Start Time Stop Time Status Last Admin Dose Admin Ceftriaxone Sodium 50 ml @ 100 mls/hr DAILY@09 IV 10/15/24 04:15 10/16/24 09:33 100 MLS/HR Metronidazole 100 ml @ 100 mls/hr Q8HR IV 10/15/24 06:00 10/16/24 05:35 100 MLS/HR Ondansetron HCl 4 mg Q4HP PRN IV 10/15/24 04:15 Morphine Sulfate 2 mg Q4HPRN PRN IV 10/15/24 04:15 Pantoprazole Sodium 40 mg DAILY IV 10/15/24 10:00 10/16/24 09:32 40 MG objective GEN: NAD ABD: soft. laboratory and microbiology Laboratory Tests 10/16/24 05:22 Test 10/16/24 05:22 Range/Units Serum Glucose 93 74-106 mg/dL Assessment/Plan A: 1. resolved SBO P: 1. surgery signing off. Plan discussed with: Patient ELENA URBINA MD October 16, 2024 10:21
[2024-10-16 13:00] VITALS: BP 142/76; PULSE 62; RESP 17; TEMP 98.6; O2SAT 95
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
[2024-10-16 17:00] VITALS: BP 146/79; PULSE 59; RESP 17; TEMP 97; O2SAT 98
[2024-10-16 21:00] VITALS: BP 124/69; PULSE 56; RESP 16; TEMP 97.4; O2SAT 96
[2024-10-17 01:00] VITALS: BP 129/68; PULSE 64; RESP 16; TEMP 97.1; O2SAT 94
[2024-10-17 05:00] VITALS: BP 128/78; PULSE 61; RESP 16; TEMP 97.5; O2SAT 98
[2024-10-17 08:43] LABS: Potassium 3.7 mmol/L (3.5-5.1); Sodium 145 mmol/L (136-145)
[2024-10-17 08:44] LABS: Anion Gap 9 (5-15); Carbon Dioxide 24 mmol/L (20-31)
[2024-10-17 08:49] LABS: BUN/Creatinine Ratio 11.3 (10.0-20.0); Blood Urea Nitrogen 11 mg/dL (9-23); Glucose 96 mg/dL (74-106)
[2024-10-17 08:56] LABS: Calcium 8.6 mg/dL (8.7-10.4); Chloride 112 mmol/L (98-107)
[2024-10-17 09:30] VITALS: BP 109/76; PULSE 63; RESP 17; TEMP 98.1; O2SAT 94
[2024-10-17 13:00] VITALS: BP 97/138; PULSE 51; RESP 17; TEMP 97.3; O2SAT 97
[2024-10-17] MEDS ORDERED: METR-344 PO (14:28)
[2024-10-17] MEDS ORDERED: AUG875T PO (14:32)
[2024-10-17 14:34] VITALS: TEMP 36.3
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
[2024-10-17 16:30] VITALS: BP 137/68; PULSE 51; RESP 17; TEMP 98.1; O2SAT 95
== END 2024-10-17 20:10 | disposition home or self-care (01) | DRG 871 ==
LOC: ER 00:02 → OVERFLOW 04:04 → EAST 18:00
PROVIDERS: ADMIT Student in an Organized Health Care Education/Training Program; ATTEND Surgery
DX: A41.9 Sepsis, unspecified organism (principal); N17.0 Acute kidney failure with tubular necrosis; K56.600 Partial intestinal obstruction, unspecified as to cause; E87.20 Acidosis, unspecified; T73.0XXA Starvation, initial encounter; F20.9 Schizophrenia, unspecified; E86.0 Dehydration; B99.8 Other infectious disease; N20.0 Calculus of kidney; K80.20 Calculus of gallbladder without cholecystitis without obstruction; E86.9 Volume depletion, unspecified; X58.XXXA Exposure to other specified factors, initial encounter; Z79.899 Other long term (current) drug therapy; Z80.3 Family history of malignant neoplasm of breast; Z72.0 Tobacco use
CPT/HCPCS: 36415; 74021; 74176; 74250; 80048; 80053; 80307; 81001; 82270; 83036; 83605; 83690; 85025; 85610; 85730; 86803; 87040; 87081; 87340; 96365; 96375; G0378; J2250; J2405; J2470; J3490